=== PATIENT | female | born 1995 | race Hispanic/Latino ===

== ENCOUNTER 2018-07-15 09:30 | Emergency (ER) | payer BC ==
[2018-07-15 10:05] LABS: #Basophils 0.1 thou/uL (0.0-0.2); #Eosinphils 0.2 thou/uL (0.0-0.7); #Lymphocytes 1.1 thou/uL (1.20-3.40); #Monocytes 0.3 thou/uL (0.11-0.59); #Neutrophils 4.3 thou/uL (1.40-6.50); %Basophils 1.2 % (0.0-1.0); %Eosinophils 3.3 % (0.0-10.0); %Lymphocytes 18.8 % (21.0-51.0); %Monocytes 5.7 % (0.0-10.0); %Neutrophils 71.1 % (42.0-75.0); Hemoglobin 13.6 g/dL (12.0-16.0); Mean Corpuscular HGB CONC 33.7 g/dL (32.0-36.0); Mean Corpuscular Hemoglobin 28.2 pg (27.0-31.0); Mean Corpuscular Volume 83.7 fL (78.0-98.0); Platelet Count 271 thou/uL (130-400); RBC Distribution Width 12.1 % (11.5-14.5); Red Blood Cell (RBC) Count 4.83 mill/uL (4.20-5.40); White Blood Cell (WBC) Count 6.1 thou/uL (4.8-10.8)
[2018-07-15 10:11] LABS: BHCG - Serum Negative (NEGATIVE); Pregs Control Background? CLEAR/WHITE (CLR/WHITE); Pregs Control Bar Appear? YES (CONTROL BAR)
[2018-07-15 10:19] LABS: ALT (SGPT) 13 U/L (8-55); AST (SGOT) 15 U/L (5-34); Albumin 4.2 g/dL (3.5-5.0); Alkaline Phosphatase 45 U/L (40-150); Anion Gap 12 mmol/L (10-20); BUN (Urea Nitrogen) 13 mg/dL (7.0-18.7); Bilirubin, Total 0.3 mg/dL (0.2-1.2); Calc. Creatinine Clearance 0 mL/min (70-130); Calcium 8.7 mg/dL (7.8-10.44); Carbon Dioxide 24 mmol/L (22-29); Chloride 108 mmol/L (98-107); Estimated GFR-MDRD 89; Globulin 2.7 g/dL (2.4-3.5); Glucose 88 mg/dL (70-105); Lipase 36 U/L (8-78); Potassium 3.8 mmol/L (3.5-5.1); Protein, Total 6.9 g/dL (6.0-8.3); Sodium 140 mmol/L (136-145)
[2018-07-15 10:33] LABS: Bilirubin Negative (Negative); Blood, Urine Negative (Negative); Clarity Cloudy (Clear); Glucose, Urine (Dipstick) Negative (Negative); Leukocyte Negative (Negative); Nitrite Negative (Negative); Protein, Urine (Dipstick) Trace mg/dL (Neg-Trace); Urobilinogen 0.2 mg/dL (0.2-1.0); pH, Urine 8.5 (5.0-9.0)
[2018-07-15] MEDS ORDERED: Ketorolac Tromethamine 60 MG/2 ML VIAL ONE (11:26)
--- NOTE | 2018-07-15 11:28 | ULT ---
EXAM: US Pelvic W Doppler PROVIDED CLINICAL HISTORY: Right lower quadrant pain COMPARISON: None FINDINGS: Uterus measures about 6.6 x 3.1 x 4.5 cm and demonstrates a normal transabdominal sonographic appeara nce. Endometrial thickness is about 5 mm. Right ovary measures about 4.7 x 2.7 x 2.4 cm and demonstrates a complex 1.5 cm presumably hemorrhagi c physiologic cyst. Left ovary measures about 3.9 x 1.5 x 1.8 cm and demonstrates a normal transabdominal sonographic jody earance. Color Doppler and spectral analysis of the ovarian waveform is demonstrates normal flow bilaterally. There is no evidence for significant free pelvic fluid. IMPRESSION: 1.5 cm complex right ovarian cyst, presumably reflecting a hemorrhagic physiologic cyst.
[2018-07-17 19:07] LABS: Chlamydia by PCR Not Detected (NotDetected); GC by PCR Not Detected (NotDetected)
== END 2018-07-15 12:00 | disposition home or self-care (01) ==
LOC: SCSER 09:30
DX: N83.201 Unspecified ovarian cyst, right side (principal)
CPT/HCPCS: 76856; 80053; 81003; 83690; 84703; 85025; 87491; 87591; 93976; 96372; J1885